=== PATIENT | female | born 1970 | race Caucasian/White ===

== ENCOUNTER 2018-09-07 14:51 | Emergency (ER) | payer SELFPAY ==
[~2018-09-07] VITALS: Ht 152.4 cm; Wt 73.2 kg
[2018-09-07] MEDS ORDERED: TORADOL PO (15:57)
[2018-09-07 16:06] VITALS: BP 144/84
== END 2018-09-07 16:06 | disposition home or self-care (01) | DRG 563 ==
LOC: ED 14:51
DX: S93.602A Unspecified sprain of left foot, initial encounter (principal); X50.1XXA Overexertion from prolonged static or awkward postures, initial encounter; Y92.003 Bedroom of unspecified non-institutional (private) residence as the place of occurrence of the external cause; M20.12 Hallux valgus (acquired), left foot

== ENCOUNTER 2018-12-31 13:24 | Emergency (ER) | payer OTHER ==
[~2018-12-31] VITALS: Ht 152.4 cm; Wt 77.4 kg
[~2018-12-31 13:24] MED LIST: TORADOL PO
[2018-12-31] MEDS ORDERED: OMEPRAZOLE XX (13:36)
[2018-12-31] MEDS ORDERED: ZITHROMAX250 MG PO (15:42)
[2018-12-31] MEDS ORDERED: TESSALON PER100 MG PO (15:42)
[2018-12-31 16:29] VITALS: BP 126/83
== END 2018-12-31 16:29 | disposition home or self-care (01) | DRG 203 ==
LOC: ED 13:24
DX: J40 Bronchitis, not specified as acute or chronic (principal); R05 Cough; F17.200 Nicotine dependence, unspecified, uncomplicated

== ENCOUNTER 2019-11-27 09:52 | Emergency (ER) | payer OTHER ==
[~2019-11-27 09:52] MED LIST changes: +OMEPRAZOLE XX; +TESSALON PER100 MG PO; +ZITHROMAX250 MG PO
[2019-11-27] MEDS ORDERED: ALL DAY10 MG PO (10:53)
[2019-11-27] MEDS ORDERED: POLYTRIM OU (10:53)
[2019-11-27 11:10] VITALS: BP 140/89
== END 2019-11-27 11:10 | disposition home or self-care (01) | DRG 125 ==
LOC: ED 09:52
DX: H10.9 Unspecified conjunctivitis (principal); F17.200 Nicotine dependence, unspecified, uncomplicated

== ENCOUNTER 2020-07-28 09:09 | Emergency (ER) | payer OTHER ==
[~2020-07-28] VITALS: Ht 152.4 cm; Wt 78.0 kg
[~2020-07-28 09:09] MED LIST changes: +ALL DAY10 MG PO; +POLYTRIM OU
[2020-07-28 12:25] VITALS: BP 155/79
== END 2020-07-28 12:25 | disposition home or self-care (01) | DRG 556 ==
LOC: ED 09:09
DX: M25.512 Pain in left shoulder (principal); F17.200 Nicotine dependence, unspecified, uncomplicated

== ENCOUNTER 2022-01-24 18:19 | Emergency (ER) | payer SELFPAY ==
[~2022-01-24] VITALS: Ht 152.4 cm; Wt 74.5 kg
[2022-01-24 20:35] VITALS: BP 156/97
[2022-01-24 20:45] VITALS: BP 142/91
[2022-01-24 20:57] LABS: HEMATOCRIT 40.6 % (37.0-47.0); HEMOGLOBIN 13.8 g/dl (12.0-16.0); IMMATURE GRANULOCYTES 0.2 % (0.0-5.0); MEAN CELL VOLUME 90.2 fL CALC (80.0-100.0); MEAN CORPUSCULAR HGB 30.7 pG CALC (26.0-32.0); NEUT# 5.38 thou/uL (2.00-7.15); RED BLOOD COUNT 4.5 mill/uL (4.20-5.60); RED CELL DISTRI WIDTH 11.9 % (11.5-15.5)
[2022-01-24 21:00] VITALS: BP 148/98
[2022-01-24 21:04] LABS: URINE BILIRUBIN - DIPSTICK NEGATIVE (NEGATIVE); URINE BLOOD DIPSTICK TRACE-INTACT (NEGATIVE); URINE COLOR YELLOW; URINE GLUCOSE - DIPSTICK NEGATIVE (NEGATIVE); URINE KETONE NEGATIVE (NEGATIVE); URINE LEUK ESTERASE NEGATIVE (NEGATIVE); URINE PROTEIN - DIPSTICK NEGATIVE (NEG-TRACE); URINE SPECIFIC GRAVITY 1.025; URINE UROBILINOGEN - DIPSTICK 0.2 E.U./dL (0.2)
[2022-01-24 21:09] LABS: URINE NITRITE - DIPSTICK NEGATIVE (Negative)
[2022-01-24 21:10] LABS: ALBUMIN 4.2 g/dL (3.2-5.0); ALKALINE PHOSPHATASE 81 u/l (38-126); ANION GAP 13 (6-22 (CALC)); BILIRUBIN, TOTAL 0.2 mg/dL (0.0-1.4); BUN 21 mg/dL (7-17); BUN/CREATININE RATIO 26 (12-20 (CALC)); CARBON DIOXIDE 29 mmol/l (22-30); CHLORIDE 103 mmol/l (95-108); CREATININE 0.8 mg/dL (0.5-1.0); GFR > 60 ML/MIN (>=60 (CALC)); GFR FOR AFR.AMER. > 60 ML/MIN (>=60 (CALC)); LIPASE 121 u/l (23-300); POTASSIUM 4.7 mmol/l (3.5-5.1); SGOT/AST 22 u/l (14-36); SODIUM 141 mmol/l (137-146); TOTAL PROTEIN 6.8 g/dL (6.3-8.2)
[2022-01-24 22:16] VITALS: BP 148/98
== END 2022-01-24 22:23 | disposition home or self-care (01) | DRG 392 ==
LOC: ED 18:19
PROVIDERS: Internal Medicine
DX: R10.9 Unspecified abdominal pain (principal); F17.200 Nicotine dependence, unspecified, uncomplicated; Z87.440 Personal history of urinary (tract) infections

== ENCOUNTER 2023-03-18 16:39 | Emergency (ER) | payer SELFPAY ==
[~2023-03-18] VITALS: Ht 152.4 cm; Wt 83.9 kg
[2023-03-18] VITALS (14 sets, daily range): BP systolic 132–163; BP diastolic 76–110
[2023-03-18 17:27] LABS: BASO% 0.4 % (0-3); EOS% 1.8 % (0-8); HEMATOCRIT 40.1 % (37.0-47.0); HEMOGLOBIN 13.4 g/dl (12.0-16.0); IMMATURE GRANULOCYTES 0.6 % (0.0-5.0); LYMPH% 31.5 % (15-41); MEAN CELL VOLUME 88.1 fL CALC (80.0-100.0); MEAN CORPUSCULAR HGB 29.5 pG CALC (26.0-32.0); MEAN CORPUSCULAR HGB CONC 33.4 g/dL CAL (32.0-36.0); NEUT# 4.86 thou/uL (2.00-7.15); NEUT% 56.7 % (42-76); RED BLOOD COUNT 4.55 mill/uL (4.20-5.60)
[2023-03-18 17:39] LABS: ALBUMIN 4.3 g/dL (3.2-5.0); ALKALINE PHOSPHATASE 94 u/l (38-126); AMYLASE 97 u/l (30-110); ANION GAP 11 (6-22 (CALC)); BUN 16 mg/dL (7-17); BUN/CREATININE RATIO 20 (12-20 (CALC)); CARBON DIOXIDE 27 mmol/l (22-30); CHLORIDE 103 mmol/l (95-108); CREATININE 0.8 mg/dL (0.5-1.0); GFR FOR AFR.AMER. > 60 ML/MIN (>=60 (CALC)); GFR OTHER RACES > 60 ML/MIN (>=60 (CALC)); LIPASE 115 u/l (23-300); POTASSIUM 4.3 mmol/l (3.5-5.1); SODIUM 137 mmol/l (137-146); TOTAL PROTEIN 7.4 g/dL (6.3-8.2)
[2023-03-18 17:45] LABS: BILIRUBIN, TOTAL 0.4 mg/dL (0.02-1.3); SGOT/AST 39 u/l (14-36)
[2023-03-18] MEDS ORDERED: NAPROXEN375 MG PO (20:37)
== END 2023-03-18 21:10 | disposition home or self-care (01) | DRG 313 ==
LOC: ED 16:39
PROVIDERS: Family Medicine
DX: R07.89 Other chest pain (principal); I10 Essential (primary) hypertension; F17.290 Nicotine dependence, other tobacco product, uncomplicated